=== PATIENT | female | born 1965 | race Caucasian/White ===

== ENCOUNTER → 2019-02-11 | Outpatient (CLI) | payer OTHER ==
[~2019-02-11] MED LIST: IOPAMIDOL 370 MG/ML 200 ML INFUS..BTL INJ ONE; SODIUM CHLORIDE 0.9% 250ML 250 ML ONE
[2019-02-11 10:11] LABS: BLOOD UREA NITROGEN 14 mg/dL (7-26); BUN/CREATININE RATIO 15 (6-25); CREATININE, SERUM 0.95 mg/dL (0.57-1.11); EST GLOMERULAR FILTRATION RATE > 60 ML/MIN (60-)
--- NOTE | 2019-02-11 13:48 | Diagnostic Imaging Report ---
EXAMINATION: CT of the abdomen and pelvis with and without contrast. TECHNIQUE: Spiral CT images of the abdomen and pelvis were performed from the lung bases to the lesser trochanters before and after the intravenous administration of 150 cc of Isovue-[id number]. Scanning in the urographic/excretory phase was performed. Coronal and sagittal reformatted images were obtained. COMPARISON: None. CLINICAL HISTORY:Gross hematuria, patient reports frequent UTIs DISCUSSION: ABDOMEN/PELVIS: LOWER THORAX:Unremarkable. HEPATOBILIARY: No focal hepatic lesions. No intra-or extrahepatic biliary ductal dilation. The gallbladder is normal. SPLEEN: No splenomegaly. Small splenule adjacent to the lateral aspect of the upper pole. PANCREAS: No focal mass or ductal dilatation. Incidental note of pancreas divisum. ADRENALS: No adrenal nodules. KIDNEYS/URETERS: Precontrast images show a punctate nonobstructing calculus in the interpolar left kidney (series 3 image 60). No hydronephrosis. No additional renal, ureteral, or bladder calculi. Excretory phase images show no filling defects within the upper collecting systems, ureters, or urinary bladder. PELVIC ORGANS/BLADDER: Punctate foci of air in the nondependent right posterolateral urinary bladder seen on the precontrast images. Urinary bladder is otherwise unremarkable. No filling defects on the excretory phase images. Uterus is anteflexed and appears normal. No adnexal mass. PERITONEUM/RETROPERITONEUM: No free air or fluid. LYMPH NODES: No pelvic sidewall, retroperitoneal, or mesenteric lymphadenopathy. VESSELS: Limited evaluation due to phase of scan acquisition. The abdominal aorta is nonaneurysmal. Portal vein, splenic vein, and central superior mesenteric vein are patent. GI TRACT: The large bowel shows no evidence of distention or wall thickening. Gas and fecal material is noted throughout. The appendix is normal. The stomach is collapsed with prominence of the rugal folds. No small bowel dilatation to suggest obstruction. BONES AND SOFT TISSUE: No osseous destructive lesions. Bone island in the right sacral ala. 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 No focal soft tissue abnormalities. IMPRESSION: Punctate nonobstructing calculus in the interpolar region of the left kidney. Otherwise no evidence of urolithiasis. No filling defects within the upper collecting systems, ureters, or urinary bladder. Small foci of air in the urinary bladder are of uncertain etiology, and correlation for recent catheterization or other instrumentation is suggested. Signed by: Dr. Rudi Luz M.D. on 02/11/2019 1:45 PM
== END ==
LOC: CT 09:16
PROVIDERS: ATTEND Urology
DX: R31.0 Gross hematuria (principal)
CPT/HCPCS: 36415; 74178; 82565; 84520; J7050; Q9967